=== PATIENT | male | born 2000 | race Caucasian/White ===

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

== ENCOUNTER 2019-04-13 12:00 | Emergency (ER) | payer MEDICAID ==
[~2019-04-13] VITALS: Ht 175.3 cm; Wt 79.5 kg
[2019-04-13 12:17] VITALS: BP 120/74
== END 2019-04-13 16:40 | disposition home or self-care (01) ==
LOC: M ED 12:00
DX: F19.10 Other psychoactive substance abuse, uncomplicated (principal); S60.812A Abrasion of left wrist, initial encounter; S50.812A Abrasion of left forearm, initial encounter; X78.9XXA Intentional self-harm by unspecified sharp object, initial encounter; Y92.89 Other specified places as the place of occurrence of the external cause; F17.200 Nicotine dependence, unspecified, uncomplicated